=== PATIENT | female | born 1990 ===

== ENCOUNTER 2018-05-11 02:59 | Emergency (ER) | payer MEDICAID ==
[2018-05-11 03:15] VITALS: RESP 18
[2018-05-11] MEDS ORDERED: Morphine 4 MG/ML VIAL IV STA (04:03)
[2018-05-11] MEDS ORDERED: Morphine 4 MG/ML VIAL ONE (04:28)
[2018-05-11 04:53] LABS: BASO % 0.7 % (0.0-2.0); EOS # 0.1 K/uL (0.0-0.7); EOS % 2.1 % (0.0-4.0); LYMPH % 32.3 % (20.0-40.0); MEAN CELL VOLUME 91.3 fl (81.0-99.0); MEAN CORPUSCULAR HEMOGLOBIN 30.7 pg (27.0-31.0); MEAN CORPUSCULAR HGB CONC 33.6 g/dL (33.0-37.0); MEAN PLATELET VOLUME 11.4 fl (7.2-11.7); MONO # 0.5 K/uL (0.0-0.8); MONO % 7.7 % (0.0-10.0); NEUT # 3.6 K/uL (1.8-7.0); NEUT % 57.2 % (50.0-75.0); NRBC % 0.1 % (0.0-0.0); RBC 4.57 Mil/uL (3.80-5.20); RED CELL DISTRIBUTION WIDTH 12.2 % (11.5-14.5); WHITE BLOOD COUNT 6.3 K/uL (4.8-10.8)
[2018-05-11 05:11] LABS: ALB/GLOB RATIO 1.3 (1.0-2.1); ALBUMIN 4.5 g/dL (3.5-5.0); ALT/SGPT 38 U/L (9-52); AST/SGOT 23 U/L (14-36); BLOOD UREA NITROGEN 10 mg/dl (7-17); CALCIUM 9.7 mg/dL (8.4-10.2); GFR NON-AFRICAN AMERICAN > 60; LIPASE 42 U/L (23-300)
--- NOTE | 2018-05-11 05:59 | ED PDOC ---
HPI: Abdomen Time Seen by Provider: 05/11/18 03:24 Chief Complaint (Nursing): Abdominal Pain Chief Complaint (Provider): Epigastric abdominal pain x 7 hours History Per: Patient History/Exam Limitations: no limitations Onset/Duration Of Symptoms: Hrs Outside of [place] travel?: No Current Symptoms Are (Timing): Still Present Location Of Pain/Discomfort: Epigastric Quality Of Discomfort: Dull, Burning Associated Symptoms: Nausea, Vomiting (x 1 ). denies: Fever, Chills Additional Complaint(s): 28 yo female with no medical problems presents for evaluation of epigastric pain x 8 hours with one episode of vomiting. No similar in the past. no fever/chills. No radiation of pain. Pt denies constipation or diarrhea. Past Medical History Reviewed: Historical Data, Nursing Documentation, Vital Signs Vital Signs: Last Vital Signs Temp 98.5 F 05/11/18 03:13 Pulse 60 05/11/18 03:13 Resp 18 05/11/18 03:13 BP 130/85 05/11/18 03:13 Pulse Ox 100 05/11/18 03:13 - Medical History PMH: No Chronic Diseases - Surgical History Surgical History: No Surg Hx - Family History Family History: States: No Known Family Hx - Home Medications Home Medications: Ambulatory Orders Medication Instructions Recorded Famotidine [Pepcid] 20 mg PO BID #28 tab 05/11/18 - Allergies Allergies/Adverse Reactions: Allergies Allergy/AdvReac Type Severity Reaction Status Date / Time No Known Allergies Allergy Verified 05/11/18 03:13 Review of Systems ROS Statement: Except As Marked, All Systems Reviewed And Found Negative Constitutional: Negative for: Fever, Chills Gastrointestinal: Positive for: Nausea, Vomiting, Abdominal Pain. Negative for: Diarrhea, Constipation, Melena, Hematochezia Physical Exam - Reviewed Nursing Documentation Reviewed: Yes Vital Signs Reviewed: Yes - Physical Exam Appears: Positive for: Well, Non-toxic, No Acute Distress Head Exam: Positive for: ATRAUMATIC, NORMAL INSPECTION, NORMOCEPHALIC Skin: Positive for: Normal Color, Warm, DRY Eye Exam: Positive for: Normal appearance ENT: Positive for: Normal ENT Inspection Neck: Positive for: Normal, Painless ROM Cardiovascular/Chest: Positive for: Regular Rate, Rhythm Respiratory: Positive for: Normal Breath Sounds. Negative for: Accessory Muscle Use, Respiratory Distress Gastrointestinal/Abdominal: Positive for: Normal Exam, Bowel Sounds, Soft. Nega tive for: Tenderness, Distended, Guarding, Rebound Back: Positive for: Normal Inspection Extremity: Positive for: Normal ROM Neurologic/Psych: Positive for: Alert, Oriented - Laboratory Results Result Diagrams: 05/11/18 04:41 05/11/18 04:41 - ECG O2 Sat by Pulse Oximetry: 100 Pulse Ox Interpretation: Normal Medical Decision Making Medical Decision Making: Pt reports feeling better on re-evaluation. Abdomen non-tender. Disposition - Clinical Impression Clinical Impression: Gastritis - Patient ED Disposition Is Patient to be Admitted: No Counseled Patient/Family Regarding: Diagnosis, Need For Followup, Rx Given - Disposition Referrals: Mayo Bejarano MD [Staff Provider] - Disposition: Routine/Home Disposition Time: 05:58 Condition: STABLE Prescriptions: Famotidine [Pepcid] 20 mg PO BID #28 tab Instructions: Gastritis (DC) Forms: [facility] (Slovenian) Print Language: NEPALESE
[2018-05-11 06:23] VITALS: BP 107/65; PULSE 68; TEMP 98
[2018-05-12 01:59] VITALS: O2SAT 100
== END 2018-05-11 06:22 | disposition home or self-care (01) ==
LOC: H.ER 02:59
DX: K29.70 Gastritis, unspecified, without bleeding (principal)
CPT/HCPCS: 80053; 81025; 83690; 85025; 96374; 96375; 99283; J2270; J2405

== ENCOUNTER 2018-11-07 06:35 | Emergency (ER) | payer MEDICAID ==
[2018-11-07] MEDS ORDERED: Sodium Chloride 0.9% 1,000 ML IV STA (07:24)
--- NOTE | 2018-11-07 07:30 | ED PDOC ---
HPI: Abdomen Time Seen by Provider: 11/07/18 07:08 Chief Complaint (Nursing): Abdominal Pain Chief Complaint (Provider): Abdominal Pain History Per: Patient History/Exam Limitations: no limitations Onset/Duration Of Symptoms: Days (X1) Current Symptoms Are (Timing): Still Present Location Of Pain/Discomfort: Epigastric Quality Of Discomfort: "Pain" Additional Complaint(s): 28 y/o female with no significant PMHx presents to the ED for evaluation of abdominal pain, onset earlier today. Patient describes pain as constant and located in the epigastric region as well as the upper abdomen. Patient notes of associated nausea and vomiting. Patient reports of developing similar symptoms last week that lasted about three days and resolved spontaneously. Otherwise, patient denies diarrhea, changes in diet, urinary changes, headache, chest pain, recent travel, alcohol use and drug use. PMD: Shana Swanson Past Medical History Reviewed: Historical Data, Nursing Documentation, Vital Signs Vital Signs: Last Vital Signs Temp 98.6 F 11/07/18 06:56 Pulse 83 11/07/18 06:56 Resp 16 11/07/18 06:56 BP 122/63 11/07/18 06:56 Pulse Ox 99 11/07/18 06:56 Primary Care Provider: Shaan Swanson - Medical History PMH: No Chronic Diseases - Surgical History Surgical History: No Surg Hx - Family History Family History: States: Unknown Family Hx - Home Medications Home Medications: Ambulatory Orders Medication Instructions Recorded Famotidine [Pepcid] 20 mg PO BID #28 tab 05/11/18 Famotidine [Pepcid] 20 mg PO DAILY PRN #6 tab 11/07/18 Ibuprofen [Motrin] 600 mg PO TID 7 Days tab 11/07/18 - Allergies Allergies/Adverse Reactions: Allergies Allergy/AdvReac Type Severity Reaction Status Date / Time No Known Allergies Allergy Verified 05/11/18 03:13 Review of Systems ROS Statement: Except As Marked, All Systems Reviewed And Found Negative Cardiovascular: Negative for: Chest Pain Respiratory: Negative for: Shortness of Breath Gastrointestinal: Positive for: Nausea, Vomiting, Abdominal Pain. Negative for: Diarrhea, Other (change in diet) Genitourinary Female: Negative for: Dysuria, Frequency, Hematuria Neurological: Negative for: Headache Physical Exam - Reviewed Nursing Documentation Reviewed: Yes Vital Signs Reviewed: Yes - Physical Exam Appears: Positive for: Uncomfortable Head Exam: Positive for: ATRAUMATIC, NORMOCEPHALIC Skin: Positive for: Normal Color, Warm, Dry Eye Exam: Positive for: EOMI, Normal appearance, PERRL Neck: Positive for: Normal, Painless ROM, Supple Cardiovascular/Chest: Positive for: Regular Rate, Rhythm. Negative for: Murmur Respiratory: Positive for: Normal Breath Sounds. Negative for: Respiratory Distress Gastrointestinal/Abdominal: Positive for: Tenderness (RUQ and epigastric tenderness). Negative for: Mass, Guarding, Rebound Back: Positive for: Normal Inspection. Negative for: L CVA Tenderness, R CVA Tenderness, Vertebral Tenderness Extremity: Positive for: Normal ROM. Negative for: Pedal Edema, Deformity Neurological/Psych: Positive for: Awake, Alert, Oriented (x3). Negative for: Motor/Sensory Deficits - Laboratory Results Result Diagrams: 11/07/18 07:33 11/07/18 07:33 Interpretation Of Abn Labs: no acute - ECG O2 Sat by Pulse Oximetry: 99 (RA) Pulse Ox Interpretation: Normal - CT Scan/US US Other Rad Studies (CT/US): Read By Radiologist Other Rad Interpretation: gallstones - Progress ED Course And Treament: 1024: Stable. AAOx3. Pain free. Tolerated PO. Fu with pcp. Medical Decision Making Medical Decision Making: Time: 723 Impression: Abdominal Pain Plan: -- CMP -- Lipase -- ED Urine -- CBC with Differentials -- Sodium Chloride IV 0.9% IV 1000 mls/hr -- Pepcid 20 mg IVP -- Toradol 15 mg IVP -- US Abdomen Limited ____ Scribe Attestation: Documented by Isabell Tavera, acting as a scribe Jt Kim MD. Provider Scribe Attestation: All medical record entries made by the Scribe were at my direction and personally dictated by me. I have reviewed the chart and agree that the record accurately reflects my personal performance of the history, physical exam, medical decision making, and the department course for this patient. I have also personally directed, reviewed, and agree with the discharge instructions and disposition. Disposition - Clinical Impression Clinical Impression: Abdominal pain, Gallstones - Patient ED Disposition Is Patient to be Admitted: No Counseled Patient/Family Regarding: Studies Performed, Diagnosis, Need For Followup, Rx Given - Disposition Referrals: Dinesh Ness MD [Staff Provider] - 11/08/18 [facility] [Outside] - 11/08/18 Disposition: Routine/Home Disposition Time: 10:26 Condition: STABLE Additional Instructions: Return if not better in 3 days. Prescriptions: Famotidine [Pepcid] 20 mg PO DAILY PRN #6 tab PRN Reason: Pain Ibuprofen [Motrin] 600 mg PO TID 7 Days tab Instructions: Gallstones, Stomach Ache and Stomach Upset Forms: [facility] (Eth[place]ian), [facility] ED School/Work Excuse
[2018-11-07 07:54] LABS: BASO # 0.1 K/uL (0.0-0.2); EOS # 0.1 K/uL (0.0-0.7); EOS % 1.8 % (0.0-4.0); HEMOGLOBIN 13.3 g/dL (12.0-16.0); LYMPH # 1.8 K/uL (1.0-4.3); LYMPH % 33.8 % (20.0-40.0); MEAN CELL VOLUME 90.8 fl (81.0-99.0); MEAN CORPUSCULAR HEMOGLOBIN 31.3 pg (27.0-31.0); MEAN CORPUSCULAR HGB CONC 34.4 g/dL (33.0-37.0); MEAN PLATELET VOLUME 11.5 fl (7.2-11.7); MONO # 0.5 K/uL (0.0-0.8); MONO % 9.8 % (0.0-10.0); NEUT # 2.9 K/uL (1.8-7.0); NEUT % 53.6 % (50.0-75.0); NRBC % 0.2 % (0.0-0.0); RBC 4.27 Mil/uL (3.80-5.20); RED CELL DISTRIBUTION WIDTH 12.4 % (11.5-14.5); WHITE BLOOD COUNT 5.4 K/uL (4.8-10.8)
[2018-11-07 08:00] LABS: ALB/GLOB RATIO 1.4 (1.0-2.1); ALBUMIN 4.2 g/dL (3.5-5.0); BLOOD UREA NITROGEN 12 mg/dl (7-17); CALCIUM 9.1 mg/dL (8.4-10.2); GFR NON-AFRICAN AMERICAN > 60; LIPASE 58 U/L (23-300)
[2018-11-07 08:03] LABS: ALT/SGPT 28 U/L (9-52); AST/SGOT 29 U/L (14-36)
--- NOTE | 2018-11-07 10:02 | US ---
Date of service: 11/07/2018 HISTORY: RUQ pain eval RUQ and epigastric COMPARISON: None. TECHNIQUE: Sonographic evaluation of the right upper quadrant of the abdomen. FINDINGS: LIVER: Measures 16.5 cm in length. Normal echogenicity of the liver parenchyma. Smooth contour. No mass. No biliary dilatation. Normal hepatopetal portal venous flow. GALLBLADDER: Cholelithiasis. No mural thickening. No pericholecystic fluid. Negative sonographic Mike sign. COMMON BILE DUCT: Measures 4 mm. No stones. No dilatation. PANCREAS: Unremarkable as visualized. No mass. No ductal dilatation. RIGHT KIDNEY: Measures 11.3 cm in length. Normal echogenicity. No calculus, mass, or hydronephrosis. AORTA: No aneurysmal dilatation. IVC: Unremarkable. OTHER FINDINGS: None . IMPRESSION: Cholelithiasis without sonographic evidence of cholecystitis. .
[2018-11-07 10:36] VITALS: BP 107/63; PULSE 70; RESP 18; TEMP 98.1; O2SAT 100
== END 2018-11-07 10:42 | disposition home or self-care (01) ==
LOC: H.ER 06:35
DX: R10.13 Epigastric pain (principal); K80.20 Calculus of gallbladder without cholecystitis without obstruction
CPT/HCPCS: 76705; 80053; 81025; 83690; 85025; 96361; 96374; 96375; 99283; J1885; J7030